=== PATIENT | female | born 1960 | race Caucasian/White ===

== ENCOUNTER 2017-12-12 15:41 | Emergency (ER) | payer BC ==
[~2017-12-12] VITALS: Ht 152.4 cm; Wt 69.2 kg
[~2017-12-12 15:41] MED LIST: ASPI81TA28 PO; CEVI30CA PO; DILT120C68 PO; FURO20TA PO; HYDC25 PO; LEVO150T PO; LEVO175T PO; LISI20TA3 PO; NIFE20CA PO; OMEGCAP2 PO; PRAS1TAB6 PO; VENL75TA4 PO
[2017-12-12 16:05] VITALS: TEMP 37; Ht 152.4 cm; Wt 69.2 kg
[2017-12-12] MEDS ORDERED: MoRPHine SULFATE 2 MG/ML CARP IV STA (16:34)
[2017-12-12] MEDS ORDERED: SODIUM CHLORIDE 0.9% 1000ML 1,000 ML IV STA (16:34)
[2017-12-12] MEDS ORDERED: ONDANSETRON INJ 2 MG/ML 2 ML VIAL IV STA (16:34)
[2017-12-12] MEDS ORDERED: ACETAMINOPHEN IV 100 ML IV STA (16:37)
[2017-12-12] MEDS ORDERED: CIPROFLOXACIN 400MG / 200ML D5W IV STA (16:37)
[2017-12-12 16:44] LABS: BASO % 0.4 %; BASO ABS # 0.02 K/uL (0-0.2); EOS % 2.9 %; EOS ABS # 0.14 K/uL (0-0.5); HEMATOCRIT 43.9 % (37-47); HEMOGLOBIN 15.2 g/dL (12.0-16.0); IG# 0.02 K/uL (0.00-0.02); LYMPH % 24.6 %; MEAN CELL VOLUME 89.6 fL (80-100); MEAN CORPUSCULAR HGB CONC 34.6 g/dl (32-36); MEAN PLATELET VOLUME 10.1 fL (7.4-10.4); MONO % 7.6 %; MONO ABS # 0.37 K/uL (0.11-0.59); NEUT % 64.1 %; NEUT ABS # 3.13 K/uL (1.4-6.5); PLATELET COUNT 226 K/uL (130-400); RED CELL DISTRIBUTION WIDTH CV 14.3 % (11.5-14.5); RED CELL DISTRIBUTION WIDTH SD 46.8 fL (36.4-46.3); WHITE BLOOD COUNT 4.88 K/uL (4.8-10.8)
[2017-12-12 16:56] LABS: ALBUMIN 4.1 gm/dl (3.4-5.0); CALCIUM 9.5 mg/dl (8.5-10.1); CREATININE 1.01 mg/dl (0.60-1.20); POTASSIUM 3.5 mmol/L (3.5-5.1)
[2017-12-12 16:59] LABS: TOTAL PROTEIN 9.4 gm/dl (6.4-8.2)
[2017-12-12] MEDS ORDERED: LISI40TA PO (17:01)
[2017-12-12] MEDS ORDERED: NIFE60TA66 PO (17:01)
[2017-12-12] MEDS ORDERED: SPIR25TA PO (17:01)
--- NOTE | 2017-12-12 17:11 | EMERGENCY ROOM VISIT NOTE ---
History Report prepared by Diane: Mildred Padron Under the Supervision of: Dr. Felipa Gonzalez M.D. First contact with patient: 16:13 Chief Complaint: URINARY SYMPTOMS Stated Complaint: UTI PAIN,DIARRHEA,VOMITING,PAIN Nursing Triage Summary: patient c/o nausea and vomiting x 2 days. patient went to [facility]. flu negative. patient c/o increased frequency and burning during urination, nausea vomiting and diarrhea. History of Present Illness The patient is a 56 year old female who presents to the Emergency Room with complaints of worsening urinary symptoms starting today. The patient states that she was at [facility] yesterday. She states that she was vomiting every two hours and couldn't walk. She reports that her heart was racing. She states that [place] gave her fluids and Zofran. She reports that they did an EKG , chest x-ray, blood work, and a urine test. She reports that they told her that everything was negative. The patient states that she is sure she has a UTI. She complains of nausea, vomiting, abdominal pain, back pain, and diarrhea. She reports that she has had 4 episodes of diarrhea today. Source of History: patient Onset: today Position: other (global) Quality: other (urinary) Timing: worsening Associated Symptoms: + nausea, + vomiting, + abdominal pain, + back pain, + diarrhea Review of Systems See HPI for pertinent positives & negatives. A total of 10 systems reviewed and were otherwise negative. Past Medical & Surgical Medical Problems: (1) Anxiety (2) Chronic abdominal pain (3) Hypertension (4) Hypothyroidism (5) Sjoegren syndrome Surgical Problems: (1) History of cholecystectomy Family History No pertinent family history Social History Smoking Status: Never Smoker Alcohol Use: none Drug Use: none Marital Status: Housing Status: lives with family Occupation Status: employed Current/Historical Medications Scheduled Aspirin (Aspirin Ec), 81 MG PO QAM Ciprofloxacin Hcl (Cipro), 500 MG PO BID Diltiazem Hcl Ext Rel (Tiazac), 120 MG PO QAM Levothyroxine Sodium (Synthroid), 175 MCG PO MON & FRI @0800 Levothyroxine Sodium (Synthroid), 150 MCG PO JARA,,,,SA@0800 Lisinopril (Zestril), 60 MG PO DAILY Nifedipine (Nifedipine Er), 1 TAB PO DAILY Spironolactone (Aldactone), 25 MG PO DAILY Venlafaxine Hcl (Effexor), 75 MG PO BID Scheduled PRN Furosemide (Lasix), 20 MG PO DAILY PRN for swelling Allergies Coded Allergies: Cephalosporins (Verified Allergy, Unknown, 01/18/16) PT HAD ROCEPHIN WITHOUT INCIDENT Meperidine (Verified Allergy, Unknown, 01/18/16) Morphine (Verified Allergy, Unknown, 12/12/17) PT STATES "IT MAKES ME GO OUT AND I CAN'T WAKE UP" Penicillins (Verified Allergy, Unknown, 01/18/16) PT HAD ROCEPHIN WITHOUT INCIDENT Prednisone (Verified Allergy, Unknown, 12/12/17) PT STATES IT CAUSES SEIZURES Sulfa Drugs (Verified Allergy, Unknown, 01/18/16) Physical Exam Vital Signs Date Time Temp Pulse Resp B/P (MAP) Pulse Ox O2 Delivery O2 Flow Rate FiO2 12/12/17 20:00 72 20 166/111 98 12/12/17 18:47 71 92 Room Air 12/12/17 18:15 87 Room Air 12/12/17 18:15 97 Nasal Cannula 2.0 12/12/17 17:46 74 18 156/94 94 Room Air 12/12/17 16:46 83 12/12/17 16:05 37.0 108 18 136/90 99 Room Air Physical Exam Vital signs reviewed. General: Well-appearing, in no significant distress. HEENT: No scleral icterus, PERRLA, neck supple. Atraumatic. Cardiovascular: Regular rate and rhythm, no extra sounds. Pulmonary: Clear to auscultation bilaterally, normal work of breathing. Abdomen: Soft, nondistended, positive bowel sounds. Diffuse mild abdominal tenderness. No rebound. No guarding. Musculoskeletal: Atraumatic, no peripheral edema. Positive CVA tenderness bilaterally. Neurologic: Patient awake alert and oriented x 3 Skin: Warm, dry, no rash Medical Decision & Procedures Laboratory Results 12/12/17 16:20 Red Blood Count 4.90, Mean Corpuscular Volume 89.6, Mean Corpuscular Hemoglobin 31.0, Mean Corpuscular Hemoglobin Concent 34.6, Mean Platelet Volume 10.1, Neutrophils (%) (Auto) 64.1, Lymphocytes (%) (Auto) 24.6, Monocytes (%) (Auto) 7.6, Eosinophils (%) (Auto) 2.9, Basophils (%) (Auto) 0.4, Neutrophils # (Auto) 3.13, Lymphocytes # (Auto) 1.20, Monocytes # (Auto) 0.37, Eosinophils # (Auto) 0.14, Basophils # (Auto) 0.02 12/12/17 16:20 Test 12/12/17 16:05 12/12/17 16:20 Urine Color YELLOW Urine Appearance CLOUDY (CLEAR) Urine pH 7.0 (4.5-7.5) Urine Specific [place] 1.021 (1.000-1.030) Urine Protein 2+ (NEG) Urine Glucose (UA) NEG (NEG) Urine Ketones TRACE (NEG) Urine Occult Blood 1+ (NEG) Urine Nitrite NEG (NEG) Urine Bilirubin NEG (NEG) Urine Urobilinogen NEG (NEG) Urine Leukocyte Esterase LARGE (NEG) Urine WBC (Auto) >30 /hpf (0-5) Urine RBC (Auto) 10-30 /hpf (0-4) Urine Hyaline Casts (Auto) 1-5 /lpf (0-5) Urine Epithelial Cells (Auto) 20-30 /lpf (0-5) Urine Bacteria (Auto) 1+ (NEG) White Blood Count 4.88 K/uL (4.8-10.8) Red Blood Count 4.90 M/uL (4.2-5.4) Hemoglobin 15.2 g/dL (12.0-16.0) Hematocrit 43.9 % (37-47) Mean Corpuscular Volume 89.6 fL (80-100) Mean Corpuscular Hemoglobin 31.0 pg (25-34) Mean Corpuscular Hemoglobin Concent 34.6 g/dl (32-36) Platelet Count 226 K/uL (130-400) Mean Platelet Volume 10.1 fL (7.4-10.4) Neutrophils (%) (Auto) 64.1 % Lymphocytes (%) (Auto) 24.6 % Monocytes (%) (Auto) 7.6 % Eosinophils (%) (Auto) 2.9 % Basophils (%) (Auto) 0.4 % Neutrophils # (Auto) 3.13 K/uL (1.4-6.5) Lymphocytes # (Auto) 1.20 K/uL (1.2-3.4) Monocytes # (Auto) 0.37 K/uL (0.11-0.59) Eosinophils # (Auto) 0.14 K/uL (0-0.5) Basophils # (Auto) 0.02 K/uL (0-0.2) RDW Standard Deviation 46.8 fL (36.4-46.3) RDW Coefficient of Variation 14.3 % (11.5-14.5) Immature Granulocyte % (Auto) 0.4 % Immature Granulocyte # (Auto) 0.02 K/uL (0.00-0.02) Anion Gap 9.0 mmol/L (3-11) Est Creatinine Clear Calc Drug Dose 54.0 ml/min Estimated GFR () 72.1 Estimated GFR (Non- 62.2 BUN/Creatinine Ratio 15.0 (10-20) Calcium Level 9.5 mg/dl (8.5-10.1) Magnesium Level 1.9 mg/dl (1.8-2.4) Total Bilirubin 0.3 mg/dl (0.2-1) Direct Bilirubin 0.1 mg/dl (0-0.2) Aspartate Amino Transf (AST/SGOT) 29 U/L (15-37) Alanine Aminotransferase (ALT/SGPT) 51 U/L (12-78) Alkaline Phosphatase 87 U/L (45-117) Total Protein 9.4 gm/dl (6.4-8.2) Albumin 4.1 gm/dl (3.4-5.0) Lipase 86 U/L (73-393) Date/Time Source Procedure Growth Status 12/12/17 16:05 Urine , Clean Catch Urine Culture - Final Escherichia Coli Complete Laboratory results per my review. Medications Administered Medications (Trade) Dose Ordered Sig/Sadi Route Start Time Stop Time Status Last Admin Dose Admin Sodium Chloride 1,000 ml @ 999 mls/hr Q1H1M STAT IV 12/12/17 16:34 12/12/17 17:34 DC 12/12/17 17:02 999 MLS/HR Ondansetron HCl (Zofran Inj) 4 mg NOW STAT IV 12/12/17 16:34 12/12/17 16:36 DC 12/12/17 17:02 4 MG Acetaminophen 100 ml @ 400 mls/hr NOW STAT IV 12/12/17 16:37 12/12/17 16:51 DC 12/12/17 17:02 400 MLS/HR Ciprofloxacin/ Dextrose (Cipro / D5W) 400 mg NOW STAT IV 12/12/17 16:37 12/12/17 16:38 DC 12/12/17 17:02 400 MG Ciprofloxacin (Cipro Tab) 1,000 mg NOW STAT PO 12/12/17 18:23 12/12/17 18:24 DC 12/12/17 19:02 1,000 MG Ondansetron HCl (ZOFRAN ODT 4MG Home Pack) 1 homepack UD ONCE PO 12/12/17 18:30 12/12/17 18:31 DC 12/12/17 19:02 1 HOMEPACK ED Course 1619: Past medical records reviewed. The patient was evaluated in room A8. A complete history and physical examination was performed. 1634: Ordered Zofran Inj 4 mg IV, NSS 1000 ml @ 999 mls/hr IV. 1637: Ordered Ciprofloxacin/ Dextrose 400 mg IV, Acetaminophen 100 ml @ 400 mls/ hr Protocol IV. 1823: Ordered Cirpo Tab 1000 mg PO. 1826: Upon reevaluation, the patient appeared to have improvement of her symptoms. I discussed findings with her. She verbalized agreement of the treatment plan. The patient was discharged home. 1830: Ordered Ondansetron HCl 1 homepack PO. Medical Decision Differential diagnosis: Etiologies such as gastroenteritis, food borne illness, infections, appendicitis , diverticulitis, inflammatory bowel disease, obstruction, GI bleed, biliary pathology, as well as others were entertained. This patient was evaluated and appeared to be in no significant distress. IV access was obtained and laboratory work was drawn. The patient was hydrated with normal saline solution. Laboratory work is fairly unrevealing. UA was obtained and is positive. The patient has multiple medication allergies. She was placed on Cipro 7 days and Zofran when necessary. Patient will drink plenty of clear fluids and follow-up with her PCP this week. She will return to the ER for worsening of symptoms or any medical concerns. Medication Reconcilliation Current Medication List: was personally reviewed by me Blood Pressure Screening Patient's blood pressure: Elevated blood pressure Blood pressure disposition: Referred to PCP Impression Primary Impression: Urinary tract infection Scribe Attestation The scribe's documentation has been prepared under my direction and personally reviewed by me in its entirety. I confirm that the note above accurately reflects all work, treatment, procedures, and medical decision making performed by me. Departure Information Dispostion Home / Self-Care Prescriptions Ciprofloxacin Hcl (CIPRO) 500 Mg Tab 500 MG PO BID, #14 TAB Prov: Felipa Gonzalez M.D. 12/12/17 Referrals Jb Mcmillan D.O. (PCP) Forms HOME CARE DOCUMENTATION FORM, IMPORTANT VISIT INFORMATION Patient Instructions My [facility] Additional Instructions Diagnosis: UTI, vomiting and diarrhea Zofran 4 mg ODT every 6 hours as needed for nausea. Cipro 500 mg twice daily for 7 days. Drink plenty of clear fluids and maintain a bland diet when tolerated. Advance your diet slowly as tolerated. Follow-up with your physician this week for reevaluation. Return to the ER for worsening of symptoms or any medical concerns.
[2017-12-12 18:15] VITALS: O2SAT 97
[2017-12-12] MEDS ORDERED: CIPR-255 PO (18:22)
[2017-12-12] MEDS ORDERED: CIPROFLOXACIN 500 MG TAB PO STA (18:23)
[2017-12-12] MEDS ORDERED: ONDANSETRON HOME PACK 4MG OD TAB PO ONE (18:30)
[2017-12-12] MEDS ORDERED: EMPTY 8 DRAM VIAL ONE (18:57)
[2017-12-12 20:00] VITALS: BP 166/111; PULSE 72; O2SAT 98
--- NOTE | 2017-12-14 15:05 | Pharmacy Progress Note ---
ED Pharmacist Culture FollowUp Date of Service: Dec 14, 2017. Called patient regarding urine culture, E. coli growing resistant to ciprofloxacin which patient was taking. Prescription for nitrofurantoin 100 mg BID x 10 days called to [facility] at the patient's request. Case discussed with Dr. Anthony, who is the prescribing provider.
== END 2017-12-12 20:18 | disposition home or self-care (01) ==
LOC: C.EDB 15:42 → C.EDA 20:18
DX: N39.0 Urinary tract infection, site not specified (principal); R19.7 Diarrhea, unspecified; F41.9 Anxiety disorder, unspecified; R10.9 Unspecified abdominal pain; G89.29 Other chronic pain; I10 Essential (primary) hypertension; E03.9 Hypothyroidism, unspecified; M35.00 Sjogren syndrome, unspecified; Z90.49 Acquired absence of other specified parts of digestive tract; Z79.82 Long term (current) use of aspirin; Z79.899 Other long term (current) drug therapy

== ENCOUNTER → 2017-12-31 | Outpatient (CLI) | payer BC ==
[~2017-12-31] MED LIST changes: -CEVI30CA PO; +CIPR-255 PO; -HYDC25 PO; -LISI20TA3 PO; +LISI40TA PO; -NIFE20CA PO; +NIFE60TA66 PO; -OMEGCAP2 PO; -PRAS1TAB6 PO; +SPIR25TA PO
== END | disposition home or self-care (01) ==
LOC: C.LAB 13:07
PROVIDERS: ATTEND Internal Medicine Nephrology
DX: N39.0 Urinary tract infection, site not specified (principal)

== ENCOUNTER → 2018-01-31 | Outpatient (CLI) | payer BC ==
[~2018-01-31] MED LIST changes: +GADAVIST IV PRN
--- NOTE | 2018-01-31 11:48 | DIAGNOSTIC IMAGING REPORT ---
Brain MRA HISTORY: H49.02 Third nerve palsy, leftR20.0 Numbness and tingling of left face TECHNIQUE: 3-D [id number] MRA of the brain was performed without contrast. COMPARISON STUDY: Head CT 01/18/2016. Brain MRI 09/12/2015. Brain MRI 03/28/2014. FINDINGS: The distal vertebral arteries and basilar artery are widely patent. Hypoplastic right P1 segment. The right POULTRY HUSBANDMAN is primarily fed through the right posterior communicating artery. This is considered to be a normal variant. The bilateral ACAs, MCAs, and tobacco dipper show no significant stenosis, occlusion, aneurysm. Focal area of susceptibility artifact lateral to the left carotid siphon consistent with the aneurysm coiling seen on the prior studies. There is diminished to no perfusion seen within the proximal carotid siphon and within the left supraclinoid ICA. This is best seen on axial images 128 and 152. The right ICA is widely patent. IMPRESSION: 1. There is diminished to no perfusion seen within the intracranial left ICA as described above. This favors focal areas of occlusion and is new from the prior studies. However, some of this could be related to the susceptibility artifact from the aneurysm coils at this location. 2. Otherwise, the bilateral ACAs, MCAs, and tobacco dipper show no significant stenosis, occlusion, or aneurysm. Electronically signed by: Alfred Christensen M.D. 01/31/2018 11:47 AM Dictated Date/Time: 01/31/2018 11:37 AM
--- NOTE | 2018-01-31 11:52 | DIAGNOSTIC IMAGING REPORT ---
BRAIN COMBO CLINICAL HISTORY: 57 years-old Female presenting with H49.02 Third nerve palsy, leftR20.0 Numbness and tingling of left side of the face, history of aneurysm surgery in 2018, pipeline stent in 2016. TECHNIQUE: Multisequence, multiplanar MR imaging of the brain was performed before and after the administration of intravenous contrast. IV contrast: 09/12/2015. COMPARISON: None. FINDINGS: Proportional ventricular and sulcal prominence, likely age-related parenchymal volume loss. Periventricular and subcortical white matter T2/FLAIR hyperintensity, nonspecific but likely indicative of chronic small vessel ischemic change. 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 No mass effect or midline shift. No restricted diffusion to suggest acute ischemia. No hemorrhage. No extra-axial fluid collection. T2 skull base flow voids preserved. Cluster of coils noted in the region of the cavernous segment of the left internal carotid artery. This likely displaces adjacent structures including the cavernous portion of the left third oculomotor nerve. The appearance is unchanged from prior MR in 2014. The pipeline stent in the intracranial portion of the left internal carotid is better visualized on contemporaneous MRA No abnormal parenchymal enhancement. Bone marrow signal intensity within the calvarium within normal limits. Cystic change noted in the bilateral parotid glands with a focal mass evident in the inferior left parotid gland (series 7 image 12). This is unchanged from prior exam in 2014. IMPRESSION: 1. Stable postprocedural changes of coil embolization in the region of the cavernous segment of the left ICA and left ICA pipeline stent. The stent is better visualized on contemporaneous MRA. The coil ball likely exerts mass effect on the cavernous portion of the left third oculomotor nerve, however, this is unchanged since 2015. 2. No acute intracranial pathology. 3. 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 4. Chronic small vessel ischemic change. 5. Left parotid gland lesion unchanged since 2014 as well as bilateral cystic changes of the parotid glands. Electronically signed by: Balbir Rivera M.D. 01/31/2018 11:51 AM Dictated Date/Time: 01/31/2018 11:41 AM
== END | disposition home or self-care (01) ==
LOC: C.MRI 01-24 06:55
PROVIDERS: ATTEND Physician Assistant
DX: H49.02 Third [oculomotor] nerve palsy, left eye (principal); I67.1 Cerebral aneurysm, nonruptured; I72.9 Aneurysm of unspecified site; R20.0 Anesthesia of skin; R20.2 Paresthesia of skin

== ENCOUNTER 2024-03-21 06:28 | Observation (INO) ==
--- NOTE | 2024-01-12 09:21 | PAT Medication Instructions ---
Medication Instructions Date of Service January 12, 2024 Home Medications aspirin 81 mg tablet,delayed release (Aspir-) 81 mg PO HS nifedipine 60 mg tablet,extended release 60 mg PO QAM ergocalciferol (vitamin D2) 1,250 mcg (50,000 unit) capsule 50,000 unit PO Q7D furosemide 20 mg tablet (Lasix) 20 mg PO DAILY PRN lisinopril 40 mg tablet 40 mg PO BID levothyroxine 112 mcg capsule 112 mcg PO QAM venlafaxine 150 mg capsule,extended release 24 hr 150 mg PO QAM ASK your prescriber and surgeon aspirin 81 mg tablet,delayed release (Aspir-) 81 mg PO HS DO NOT take the morning of surgery ergocalciferol (vitamin D2) 1,250 mcg (50,000 unit) capsule 50,000 unit PO Q7D furosemide 20 mg tablet (Lasix) 20 mg PO DAILY PRN lisinopril 40 mg tablet 40 mg PO BID Take morning of surgery With a small sip of water, OTHERWISE NOTHING TO EAT OR DRINK AFTER MIDNIGHT: nifedipine 60 mg tablet,extended release 60 mg PO QAM levothyroxine 112 mcg capsule 112 mcg PO QAM venlafaxine 150 mg capsule,extended release 24 hr 150 mg PO QAM Take evening before surgery lisinopril 40 mg tablet 40 mg PO BID Other Notes If you have any questions please call us at [phone] or [phone] or [phone] or [phone]
--- NOTE | 2024-01-14 09:27 | Anesthesiology Consultation ---
Date of Service January 14, 2024 Assessment & Plan (1) Encounter for pre-operative examination: - Infectious disease screening: Per assessment on 01/14/24: No known infectious disease contacts or current infectious disease symptoms. No noted recent Covid positive test result. - Outpatient joint assessment: Pt currently scheduled for inpatient pathway. If surgeon requests review for outpatient joint pathway, patient is an acceptable candidate for outpatient joint program from anesthesia standpoint pending surgeon's office assessment that patient is motivated, has good support and completes Same Day Joint Program preop requirements. 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 She has a history of a 3 mm right IZABELLA aneurysm which was stable and overall of 2019 to compare the 2020. 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. The patient had a history of headaches but her headaches have resolved and she is doing quite well neurologically. Recommendations: 1. Follow-up in 1 year. 2. At that time, we will consider when we might want to recheck her MR angiography again." - Hx orthostatic hypotension: Patient states she will be seeing cardiology for new patient appt in near future. Awaiting upcoming cardiology office visit ([facility] cardiology, appt 01/27). Patient otherwise acceptable risk for surgery. Chart Review Chart Review: Patient seen in Pre Admission Testing Teaching & Discussion Pre-Anesthesia Teaching/Discussion Notes: Instructed NPO after midnight before surgery,except medications with 15 cc of water. Medication instructions provided according to the PAT guidelines. History Surgery Operation Date: 02/15/24 12:30 Proposed Procedures p Left Total Knee Arthroplasty - Santy Valle MD Height/Weight Height: 5 ft Weight: 67.7 kg Allergies Allergy/AdvReac Type Severity Reaction Status Date / Time prednisone Allergy Severe Seizure Verified 01/10/24 09:29 Sulfa (Sulfonamide Allergy Severe Throat/lips/face Verified 01/12/24 09:19 Antibiotics) swelling, vomiting meperidine Allergy Intermediate "Hard time Verified 01/12/24 09:19 waking" after surgery Penicillins Allergy Intermediate Itchy, Verified 01/12/24 09:19 hives Cephalosporins Allergy Unknown Unknown Verified 01/10/24 09:29 Medications Home Medications Medication Instructions Recorded Confirmed Last Taken aspirin 81 mg tablet,delayed 81 mg PO HS 11/1301/10/24 10/19/19 release (Aspir-) nifedipine 60 mg tablet,extended 60 mg PO QAM 09/27/18 01/10/24 10/20/19 release ergocalciferol (vitamin D2) 1,250 50,000 unit PO Q7D 03/24/22 01/10/24 Unknown mcg (50,000 unit) capsule furosemide 20 mg tablet (Lasix) 20 mg PO DAILY PRN Fluid Retention 10/02/22 01/10/24 Unknown lisinopril 40 mg tablet 40 mg PO BID 10/02/22 01/10/24 Unknown levothyroxine 112 mcg capsule 112 mcg PO QAM 01/07/24 01/10/24 Unknown venlafaxine 150 mg 150 mg PO QAM 01/10/24 01/10/24 Unknown capsule,extended release 24 hr Past Medical History Medical History Anxiety Brain aneurysm Follows with [facility] neurology Per neuro visit 05/2013: "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 She has a history of a 3 mm right IZABELLA aneurysm which was stable and overall of 2019 to compare the 2020. 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." GERD (gastroesophageal reflux disease) Hypertension Hypothyroidism IgA nephropathy Left knee DJD Lupus Orthostatic hypotension Recent dx, upcoming new patient appt with [facility] Cardiology 01/28/24 Osteoarthritis Raynauds disease Sjoegren syndrome Exercise / Class Metabolic Activity II 4-5 Yardwork/Stairs/Walk up hill (one FS: no CP, no SOB) Past Family History Family History Mother Colorectal cancer Father Liver disease Other No family history of adverse response to anesthesia No significant family history Past Surgical History Surgical History H/O cerebral aneurysm repair 2007 [facility] History of cardiac catheterization 2009- No stents History of carpal tunnel surgery of right wrist History of cholecystectomy History of colonoscopy History of esophagogastroduodenoscopy (EGD) History of laparoscopy History of right inguinal hernia repair History of total abdominal hysterectomy and bilateral salpingo-oophorectomy History of tubal ligation Past Anesthesia History No Hx of Anesthesia Complications and Difficult Airway History of PONV No Hx of PONV and No Hx of Motion Sickness Social History Smoking Status: Never smoker Do You Dip or Chew Tobacco: No Hx Alcohol Use: No Hx Substance Use: No substance use type: does not use Review of Systems Occasional palpitations. Patient denies chest pain, shortness of breath, dyspnea on exertion, fever, chills, cough, wheezing. Physical Exam Vital Signs BP 129/84 P 82 TEMP 98.5 SP02 96%RA RESP 16 Physical Full cervical extension range of motion. Full TMJ range of motion. TMD 3.5 finger breaths Mallampati Score 3 Dentition: upper/lower full dentures Lungs: clear throughout to auscultation Cardiac: regular rate and rhythm, no murmurs noted Spine: normal Carotid arteries: negative bruit Extremities: no LE edema Lab Results Anesthesia Preop Results Results Anesthesia Widget: WBC 5.49 K/ul (4.8-10.8) 01/14/24 Hgb 15.4 g/dl (12.0-16.0) 01/14/24 Hct 44.8 % (37.0-47.0) 01/14/24 Plt 277 K/uL (130-400) 01/14/24 Na 140 mmol/L (136-145) 01/14/24 K 3.6 mmol/L (3.5-5.1) 01/14/24 Cl 105 mmol/L (98-107) 01/14/24 CO2 27 mmol/L (21-32) 01/14/24 BUN 26 mg/dl (6-23) H 01/14/24 Creat 0.82 mg/dl (0.6-1.2) 01/14/24 Glucose Level 80 mg/dl (70-99(Fasting)) 01/14/24 PT 10.6 Seconds (9.0-12.0) 01/14/24 PTT 31 Seconds (21-31) 01/14/24 INR 1.0 (0.9-1.1) 01/14/24 Blood Type O Positive 01/14/24 Antibody Screen NEGATIVE 01/14/24 Testing Electrocardiogram Date: 01/14/24 NSR at 78bpm. Voltage criteria for LVH. Minor NS TWA. Chest X-Ray Date: 01/14/24 Findings: + NAD Other Testing Brain MRI Date: 02/19/22 FINDINGS: There are no foci of restricted diffusion to suggest acute infarct. No acute intracranial hemorrhage, midline shift or mass effect is present. Ventricular system is unremarkable. Basal cisterns are patent. There are no extra axial collections. Flow-voids for the major intracranial vessels are present. There is no intracranial mass or pathologic enhancement. Numerous white matter T2 hyperintense foci are similar to MRI of May 28, 2020. Old lacunar infarcts within left cerebellar hemisphere unchanged. There is no right basal ganglia infarct. This is also unchanged. Susceptibility artifact within the region of the left supraclinoid ICA is from the embolization coils. Calvarial signal is normal. Orbits are unremarkable. There is no evidence for sinusitis. There is no mastoid fluid. Heterogeneity of the bilateral parotid glands is unchanged. IMPRESSION: No acute intracranial findings. No change in appearance of the brain since MRI of May 28, 2020. No change in numerous white matter T2 hyperintense foci. Head MRA Date: 02/19/22 FINDINGS: A 3 mm right supraclinoid ICA aneurysm is unchanged since MRA of May 28, 2020. Diminished flow-related enhancement of the left carotid siphon is similar to prior MRI. This could be due to susceptibility artifact from embolization. The appearance is unchanged. There is persistence of the right posterior cerebral artery. No central vessel occlusion is identified. No additional intracranial aneurysms are identified. The posterior circulation is intact. There is no evidence for dissection within the intracranial vessels. The MRI of the brain will be reported separately. IMPRESSION: No change since MRA of May 28, 2020. 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 Stable findings following coil embolization within the region of the left supraclinoid ICA. Diminished flow related enhancement within the adjacent portion of the left internal carotid artery is unchanged since prior exam. This could be related to susceptibility artifact from the adjacent coils or the left ICA stent. Vessel stenosis could appear similar.
--- NOTE | 2024-03-16 08:09 | History & Physical Report ---
Date of Service March 16, 2024 Assessment & Plan (1) Left knee DJD: 63-year-old female with a 10+ year history of persistent progressive left knee pain discomfort unresponsive conservative treatment. She like to proceed with knee replacement. As she has been seen and medically optimized. Patient also has a history of trigger fingers of the right hand. That she likely is fixed at the same time. This is gone for several months. Not interested in injection treatment. Plan: Orgran taken to the operating room and do a left knee replacement for the risks Mente this procedure planed the patient clued but not limited to DVT PE infection neurological and vascular bleeding palm pain in the manage most this is fairly her symptoms incomplete relief of symptoms excetra. The patient understands and desires to proceed. Informed consent was obtained. Will also proceed with trigger finger release Right long and ring trigger fingers. The risks Mente this procedure EXPLAINED. SHE UNDERSTANDS AND DESIRES TO PROCEED. WILL PLAN ON DVT PROPHYLAXIS INCLUDING THIGH-HIGH TEDS, SCDS, ASPIRIN TWICE A DAY. WILL LIKELY USE TRAMADOL FOR POSTOPERATIVE PAIN CONTROL SHE HAS NOT DONE WELL WITH OXYCODONE. (2) Trigger finger, right ring finger: (3) Trigger finger, right middle finger: History of Present Illness Chief Complaint: . #1 left knee pain 2. Right long and ring finger catching and locking. Primary Care Provider: Myra Lawler MD . Patient is a 63-year-old female who presents now for surgical treatment of several things. 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 She has a 10-year history of left knee pain discomfort is gradually gotten worse over time patient been followed and treated at [facility] orthopedics. She has been through ex tensive conservative care which would become less successful over time. Got global pain in her knee. The more she is up and onto more it hurts. She has difficulty going up and down steps. She now like to proceed with surgical treatment. Of note, this patient's been scheduled for knee surgery in the past but got rescheduled due to some medical issues. She is had her medicines adjusted and now doing better and would like to proceed with knee surgery. She been seen by cardiology and cleared. Over the past several months she developed catching and locking of her right long and ring fingers. Bit worse in the morning. She has been seen in clinic and she is elected proceed with surgical treatment. She is not interested in conservative/injection treatment Allergies Allergy/AdvReac Type Severity Reaction Status Date / Time prednisone Allergy Severe Seizure Verified 03/08/24 08:24 Sulfa (Sulfonamide Allergy Severe Throat/lips/face Verified 03/08/24 08:24 Antibiotics) swelling, vomiting meperidine Allergy Intermediate "Hard time Verified 03/08/24 08:24 waking" after surgery Penicillins Allergy Intermediate Itchy, Verified 03/08/24 08:24 hives Cephalosporins Allergy Unknown Unknown Verified 03/08/24 08:24 Home Medications Medication Instructions Recorded Confirmed Type aspirin 81 mg tablet,delayed 81 mg PO QAM 09/27/18 03/08/24 History release (Aspir-) nifedipine 60 mg tablet,extended 60 mg PO QAM 09/27/18 03/08/24 History release ergocalciferol (vitamin D2) 1,250 50,000 unit PO Q7D 03/24/22 03/08/24 History mcg (50,000 unit) capsule furosemide 20 mg tablet (Lasix) 20 mg PO DAILY PRN Fluid Retention 10/02/22 03/08/24 History lisinopril 40 mg tablet 40 mg PO BID 10/02/22 03/08/24 History levothyroxine 112 mcg capsule 112 mcg PO QAM 01/07/24 03/08/24 History venlafaxine 150 mg 150 mg PO QAM 01/10/24 03/08/24 History capsule,extended release 24 hr metoprolol succinate 25 mg 25 mg PO HS 03/08/24 03/08/24 History tablet,extended release 24 hr Wheeled Walker #1 ea 03/13/24 Rx Past Med/Surg History Medical History IgA nephropathy Osteoarthritis Lupus Raynauds disease GERD (gastroesophageal reflux disease) Brain aneurysm Follows with [facility] neurology Per neuro visit 05/2013: "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 She has a history of a 3 mm right IZABELLA aneurysm which was stable and overall of 2019 to compare the 2020. 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." Orthostatic hypotension Recent dx, upcoming new patient appt with [facility] Cardiology 01/28/24 Left knee DJD Anxiety Hypothyroidism Sjoegren syndrome Hypertension Surgical History History of cardiac catheterization 2010- No stents, [facility] History of laparoscopy History of tubal ligation History of esophagogastroduodenoscopy (EGD) History of colonoscopy History of carpal tunnel surgery of right wrist H/O cerebral aneurysm repair 2007 [facility] + 2016 [facility] History of total abdominal hysterectomy and bilateral salpingo-oophorectomy History of right inguinal hernia repair History of cholecystectomy Family History Mother Colorectal cancer Father Liver disease Other No family history of adverse response to anesthesia No significant family history Social History Smoking Status: Never smoker Second Hand Exposure: No; Do You Dip or Chew Tobacco: No; Tobacco Cessation Education Requested by Patient: No Hx Alcohol Use: No Hx Substance Use: No Preferred Language: Belarusian Communication Ability: Effective 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 Physical Exam . Physical examination reveals a pleasant fairly petite middle-age female but looks in reasonably good health. Examination of the left knee reveals the patient walks with a fairly normal gait. No obvious limp. She got fairly anatomic to slight varus alignment to her knee. She is tender over the medial joint line. Small knee effusion. Range of motion 5-1 25. No instability. No pain with hip motion. Examination of the hand reveals pain and discomfort along the flexor sheath of the right long and ring fingers. She got to trigger the long finger. Little bit more difficult to get a trigger of the ring finger. She is neurologically intact. Does have a scar from previous carpal tunnel release. Neck trachea midline, no thyromegaly Respiratory normal respiratory effort, lungs clear to auscultation Cardiovascular RRR, no murmur, no edema Gastrointestinal (Abdomen) normal bowel sounds, soft, nontender, no hepatosplenomegaly Results & Data Results & Data Laboratory Results . Diagnostic Findings . X-rays of the left knee were reviewed. Shows moderate medial compartment arthritis. Got 50% loss of her medial joint space. Is got osteophytes medially and laterally. PG Care Time/CCT Total # of Minutes Spent Total Time Spent with Patient: Total time spent is greater than 50% in coordination of care (as documented) at patient's floor/unit and/or counseling patient: Coding Level of Care Code None Diagnoses Left knee DJD M17.12 Trigger finger, right ring finger M65.341 Trigger finger, right middle finger M65.331
[~2024-03-21 06:28] MED LIST changes: +ALLERGY Noted to ORDERED Medication SCH; -ASPI81TA28 PO; +BUPIVACAINE 0.5 % 5 MG/1 ML PF 10ML VIAL ONE; -CIPR-255 PO; -DILT120C68 PO; -FURO20TA PO; -GADAVIST IV PRN; -LEVO150T PO; -LEVO175T PO; -LISI40TA PO; -NIFE60TA66 PO; +ROPIVACAINE 0.5% 5 MG/ML 30 ML VIAL ONE; -SPIR25TA PO; -VENL75TA4 PO
--- NOTE | 2024-03-21 06:52 | History & Physical Bridge Note ---
Date of Service March 21, 2024 History & Physical Bridge Note I have examined the patient, reviewed the History & Physical and in the interval since the performance of the History & Physical I have noted the following changes of clinical significance: no changes noted
[2024-03-21] MEDS ORDERED: Nursing to Pharmacy Communication SCH (07:15)
[2024-03-21] MEDS: FAMOTIDINE 20 MG TAB PO SCH (07:30)
[2024-03-21] MEDS: CeleBREX 200 MG CAP PO SCH (07:30)
[2024-03-21] MEDS: METOCLOPRAMIDE HCL 10 MG TABLET PO SCH (07:31)
[2024-03-21] MEDS: ACETAMINOPHEN 500 MG TAB PO SCH ×2 (07:31→14:37)
[2024-03-21] MEDS: Scopolamine 1 MG TDSY TD SCH (07:31)
[2024-03-21] MEDS: LR 500ML BOLUS, THEN 15ML/HR IV SCH (07:31)
[2024-03-21] MEDS: LR 60ML/HR IV SCH (07:31)
[2024-03-21] MEDS: dexAMETHasone**PF** 10 MG/ML VIAL IV SCH (07:31)
[2024-03-21] MEDS ORDERED: MIDAZOLAM HCL 1 MG/ML 2ML VIAL ONE (08:09)
[2024-03-21] MEDS: ceFAZolin 2000MG 2,000 MG/15 ML SYR IV SCH (09:11)
[2024-03-21] MEDS: TRANEXAMIC ACID 1,000 MG **IV Intra-op IV SCH (09:58)
[2024-03-21] MEDS: ROPIV 0.5% 246mg, Ketorolac 30mg, EPINEPHrine 0.5mg in NSS INFIL SCH (09:59)
[2024-03-21] MEDS: ORTHO JOINT ANESTHETIC ONE (10:00)
[2024-03-21] MEDS ORDERED: LIDOCAINE 2% 2 ML VIAL/AMP(20MG/ML) INFIL ONE (10:10)
[2024-03-21] MEDS ORDERED: PROPOFOL IV EMULSION 10 MG/ML 20 ML VIAL IV ONE (10:10)
[2024-03-21] MEDS: LIDOCAINE 1% LOCAL 20 ML VIAL ONE (10:59)
--- NOTE | 2024-03-21 11:33 | Operative Report ---
PG Post Operative Report Pre & Post Diagnosis Operation Date: 03/21/24 08:50 Pre-Op Diagnosis: Left Knee Degenerative Joint Disease, trigger finger right 3rd and 4th finger Post-Op Diagnosis: Left Knee Degenerative Joint Disease, trigger finger right 3rd and 4th finger I identified the patient and participated in the time-out.: Yes Procedure Operation Date: 03/21/24 08:50 Actual Procedures p Left Total Knee Arthroplasty(Left) - Santy Valle MD s Right Third and Fourth Trigger Finger Release(Right) - Santy Valle MD Surgeon Santy Valle MD Assistant Import Manager Pradeep Langston PA-C Estimated Blood Loss 52 Findings Consistent with Post-Op Diagnosis Operative findings in the left knee revealed full-thickness cartilage loss in the medial side of the knee. There is no knee joint eburnation. She had some spotty grade 4 changes laterally. Fairly mild patellofemoral disease. Small to moderate-sized knee joint effusion. Moderate osteopenia. Specimens Left knee sent for pathology Anesthesia Type Spinal MAC Complications none Disposition Accompanied Patient To Recovery: No Indications Patient is a 63-year-old female has had about a 10-year history of left knee pain discomfort is gradually gotten worse over time. She been through extensive conservative treatment which became less successful over time. X-rays revealed moderate knee arthritis. She failed all conservative measures. She elected pro ceed with total knee arthroplasty. The patient is also had a several month history of triggering and catching and discomfort of the right long and ring fingers. She elected proceed with trigger finger release at the time of this knee replacement surgery. Description of Procedure Operative implants consist of: 1 Biomet Vanguard size 57.5 left posterior stabilized femoral component. 2. Biomet size 67 tibial tray. 3. 12 mm post stabilized polyethylene insert. 4. 28 x 8 all poly patella. The patient was taken to the operating, identified, placed on the operating table in supine position. All contact areas were appropriately padded. IV antibiotics tried by anesthesia team. A spinal anesthetic and abductor canal block had been provided in the holding area. A Boyd catheter was placed in sterile fashion. Left thigh drape was then placed in the left lower extremity was then prepped and draped in usual sterile fashion. The left leg was elevated and exsanguinated with use of an Esmarch and tourniquet placed at 300 mmHg. An anterior approach the left knee was then performed to longitudinal incision centered over the patella. Sharp dissection was got through subcutaneous tissue down the extensor mechanism. Medial parapatellar arthrotomy incision was made. Some subperiosteal dissection was carried out medially. The fat pad was resected from Neath patella tendon. Lateral patellofemoral ligament was released. The patella was subluxated laterally and the knee was flexed. The osteophytes taken on distal femur. The ACL and PCL were then released from distal femur and the tibia subluxated anteriorly. The external treatment line jig was then placed the interface the tibia and adjusted 14 mm medially. Proximal tibial cut was made to move out to 3 mm of bone from the medial side. The tibia sized to a size 67. Attention drawn the distal femur. The distal femur was then with a sharp drill. Intramedullary canal was suction. A left 5 degree valgus cutting guide was placed. The distal femoral cutting block was pinned in place. Distal femoral cut was made to take an additional 3 mm of bone off the distal femur. The femur was then sized to a size 57.5. The AP cutting block was pinned parallel to the epicondylar axis which was 4 degrees of external rotation. The anterior cut, anterior chamfer, posterior cut, posterior chamfer cuts were made. The box cutting guide was placed in just slight lateral box cut was made. The knee was flexed. The remnants of the medial and lateral menisci were excised. The osteophytes were taken off the posterior aspect of femur. A trial femoral component was placed. The tibial tray was pinned Lluvia external rotation and the drill and stem punch were used to create defect in proximal tibia for the tibial tray. The knee was then trialed and the 12 mm insert fit most appropriately. Attention drawn the patella. The patella was cleaned of all soft tissues. Patella thickness measured 19 mm in thickness was cut down to 13. Was sized to a size 28 patella. The lug holes were drilled for the 28 patella. The lateral osteophyte was removed. Patella button was placed. Knee was taken through range of motion and the patella tracked nicely with no thumbs test. Attention drawn to place the permanent components. All trial components were removed. Bone plug was placed in the distal femur limit blood loss. A double batch Palacos G cement was mixed. A BiomAdesso Solutionsguard size 57.5 left posterior stabilized femoral component, size 67 tibial tray, a 12 mm post stabilized polyethylene insert, and a 28 x 8 all poly patella then cemented in place. The knee was brought out into full extension till cement hardened. Final cement check was then performed. The pericapsular tissues were injected with 100 cc of orthopedic joint mix. The patient did receive 1 g of tranexamic acid. The tourniquet was then let down for final tourniquet time 51 minutes. Hemostasis assured use electrocautery. The wound was once again irrigated. The extensor Metros then closed with combination 1 PDS suture #1 Vicryl suture in a [id number] fashion. The extensor Meclomen checked found to be intact and subcutaneous tissue then closed with 2 Dexon suture in a buried interrupted fashion skin was closed with skin mirlande. Leg was then cleaned and dried and sterile dressing with Xeroform, 4 fours, sterile cast padding, Gabo bandage were applied. Attention drawn to the right hand. All drapes were taken down. The right forearm tourniquet was placed. The right hand was cleaned with alcohol. 11 cc of 1% lidocaine were then injected at the base of the right long and ring fingers. The right hand was then prepped and draped in usual sterile fashion. The right hand was elevated and exsanguinated with use of an Esmarch and the tourniquet was placed at 250 mmHg. A transverse incision was made at the base of the long and ring fingers the distal palmar crease. Blunt dissection was carried out through subcutaneous tissue taking great care to protect the digital nerves. Attention was first drawn to the long finger. The 1 roberta was identified over the flexor tendon sheath. It was transected the use of scissors both proximally and distally. The finger was taken through an active and active assisted range of motion there is no further catching. Attention drawn the ring finger. Blunt dissection was carried directly down to the flexor tendon sheath of the ring finger. The A1 roberta was identified and released with use of scissors. Finger was taken through an active and active assisted range of motion is no further catching. We then irrigated the wound. The tourniquet was let down for tourniquet time 5 minutes. Hemostasis assured use electrocautery. The wound was once again irrigated and the skin was closed with 4-0 nylon suture in a horizontal mattress fashion. The hand was then cleaned and dried and a sterile dressing composed of Xeroform, 4 x 4's, sterile cast padding, Gabo bandage were applied. Patient then transferred to the recovery room in stable condition. Patient tolerated procedure well and there were no complications. Pradeep Langston, my physician events and promotions assistant, was present for the entire procedure. His assistance was required for proper patient positioning, prepping and draping, surgical exposure, retraction, perform the technical details of the operation, placement of the implants, closure of the incision sites as well as closure of the skin and placement of sterile bandages. I attest to the content of the Intraoperative Record and any orders documented therein. Any exceptions are noted below.
--- NOTE | 2024-03-21 11:40 | Anesthesiology Progress Note ---
Date of Service March 21, 2024 Anesthesia Post Procedure Vital Signs Vital Signs: Temp Pulse Pulse Resp BP Pulse Ox O2 Del Method 03/21/24 11:35 68 17 113/58 L 99 Nasal Cannula 03/21/24 11:25 67 18 106/54 L 92 Room Air 03/21/24 11:15 36.2 C L 70 18 115/56 L 92 Room Air 03/21/24 06:45 36.9 C 61 18 166/81 H 96 Room Air O2 Flow Rate 03/21/24 11:35 2 03/21/24 11:25 03/21/24 11:15 03/21/24 06:45 Notes Mental Status: alert / awake / arousable Patient Amnestic to Procedure: Yes Nausea / Vomiting: adequately controlled Pain: adequately controlled Airway Patency, RR, SpO2: stable & adequate BP & HR: stable & adequate Hydration State: stable & adequate Neuraxial Anesthesia: was administered Anesthetic Complications: no major complications apparent
--- NOTE | 2024-03-21 12:03 | XRay Report ---
LEFT KNEE 2 VIEWS History: Left total knee arthroplasty. Degenerative arthritis. Postop. FINDINGS: The patient is status post a left total knee arthroplasty. The hardware is intact. No fract ure or dislocation. Skin mirlande are in place. IMPRESSION: Left total knee arthroplasty. No evidence for hardware complication. ACT 112: Negative or not required by law. Electronically signed by: Alfred Christensen M.D. 03/21/2024 12:02 PM
[2024-03-21] MEDS ORDERED: ONDANSETRON INJ 2 MG/ML 2 ML VIAL IV PRN (13:59)
[2024-03-21] MEDS ORDERED: NALOXONE HCL 0.4 MG/1 ML VIAL/CARP IV PRN (13:59)
[2024-03-21] MEDS ORDERED: FUROSEMIDE 20 MG TAB PO PRN (13:59)
[2024-03-21] MEDS ORDERED: ALUMINUM/MAGNESIUM SUSP 30 ML UDC PO PRN (13:59)
[2024-03-21] MEDS ORDERED: bisacodyL 10 MG SUPP PR PRN (13:59)
[2024-03-21] MEDS ORDERED: MAGNESIUM HYDROXIDE SUSP 30 ML UDC PO PRN (13:59)
[2024-03-21] MEDS ORDERED: METOCLOPRAMIDE HCL INJ 5 MG/ML 2 ML VIAL IV PRN (13:59)
[2024-03-21] MEDS: SODIUM CHLORIDE 0.9% 1,000 ML IV SCH (14:13)
[2024-03-21] MEDS: KETOROLAC 30 MG/ML VIAL IV SCH (14:36)
[2024-03-21] MEDS: Scopolamine CHECK PATCH PLACEMENT SCH (16:00)
[2024-03-21] MEDS: ASCORBIC ACID 500 MG TAB PO SCH (16:01)
[2024-03-21] MEDS: ceFAZolin 1000MG 1,000 MG/7.5 ML SYR IV SCH (16:13)
[2024-03-21] MEDS: TRANEXAMIC ACID / 0.7% NACL 1,000 MG/100 ML BAG IV SCH (16:14)
[2024-03-21] MEDS: ASPIRIN 81 MG ECTAB PO SCH (20:09)
[2024-03-21] MEDS: DOCUSATE SODIUM 100 MG CAP PO SCH (20:10)
[2024-03-21] MEDS: lisinopril 40 MG TAB PO SCH (20:10)
[2024-03-21] MEDS: METOPROLOL SUCC 25MG EXT REL TAB PO SCH (20:10)
[2024-03-21] MEDS: SENNA 8.6 MG TAB PO SCH (20:10)
[2024-03-21] MEDS ORDERED: SENNA 8.6 MG TAB PO SCH (21:00)
[2024-03-21] MEDS: traMADol HCL 50 MG TABLET PO PRN (22:38)
[2024-03-21] MEDS: HYDROmorphone INJ 0.5 MG/0.5 ML SYR IV PRN (23:31)
[2024-03-22] MEDS: LEVOTHYROXINE SODIUM 112 MCG TABLET PO SCH (05:01)
[2024-03-22] MEDS: dexAMETHasone 10 MG in SYRINGE 0 ML IV SCH (07:12)
[2024-03-22] MEDS: NIFEdipine EXTENDED REL 30 MG TABCR PO SCH (07:13)
[2024-03-22] MEDS: VENLAFAXINE HCL XR 150 MG CAPXR PO SCH (07:13)
[2024-03-22] MEDS: MULTIVITAMIN TAB PO SCH (07:13)
[2024-03-22] MEDS: ERGOCALCIFEROL 1250 MCG (50,000 UNITS) CAP PO SCH (07:13)
[2024-03-22 07:31] LABS: Hematocrit (blood only) 36.3 % (37.0-47.0); Hemoglobin 12.5 g/dl (12.0-16.0); Mean Corpuscular Hemoglobin 29.3 pg (25.0-34.0); Mean Corpuscular Hgb Conc 34.4 g/dL (32.0-36.0); Mean Corpuscular Volume 85.2 fL (80.0-100.0); Mean Platelet Volume 10.2 fL (9.4-12.4); Platelet Count 222 K/uL (130-400); RDW Coefficient of Variation 13.3 % (11.5-14.5); RDW Standard Deviation 41.5 fL (36.4-46.3); Red Blood Count 4.26 M/uL (4.20-5.40)
--- NOTE | 2024-03-22 07:48 | Surgery Progress Note ---
Date of Service March 22, 2024 Assessment & Plan (1) Status post left knee replacement: Plan: 63-year-old female postop day 1 from a left knee replacement and some right hand trigger finger releases. She is doing well. Pain is controlled. She is neurologically intact. Plan: 1. DVT prophylaxis including thigh-high teds, SCDs, aspirin twice a day. 2. PT/OT. Weight-bear as tolerated. Left total knee protocol. 3. Pain control doing okay with current pain regimen. 4. Disposition plan to discharge home with some home health later today if she does okay in that physical therapy. Leave the dressing on her right hand. All instructed on dressing changes starting tomorrow for the left knee. (2) Trigger finger, right ring finger: (3) Trigger finger, right middle finger: Admission and Anticipated Discharge Date Admission Date: March 21, 2024 Subjective 63-year-old female postop day 1 from left knee replacement and right hand tri gger finger releases. She is doing pretty well. No real pain at all in her hand. The left knee just feels stiff. No chest pain or shortness of breath. Had a reasonable night. Physical Exam Physical Exam: Physical examination reveals a pleasant middle-aged female. Lying bed looks pretty comfortable. Examination left leg reveals dressing be clean dry and intact. She can dorsiflex and plantarflex her foot appropriately. She can do a straight leg raise but takes some effort. Physical examination of the right hand reveals the dressing be clean dry and intact. She can flex extend her fingers appropriately. She is neurologically intact. Respiratory: normal respiratory effort, lungs clear to auscultation Cardiovascular: RRR, no murmur, no edema Gastrointestinal (Abdomen): normal bowel sounds, soft, nontender, no hepatosplenomegaly Results & Data Vital Signs (Past 12 Hours) Vital Signs Temp Pulse Pulse Resp BP Pulse Ox O2 Del Method 03/22/24 07:41 36.8 C 52 L 16 169/94 H 95 Room Air 03/22/24 03:13 36.7 C 62 16 152/79 H 97 Room Air 03/21/24 23:11 36.7 C 65 16 137/76 96 Room Air 03/21/24 22:23 Room Air Laboratory Results Hemoglobin is 12.5 hematocrit 36.3. Electrolytes are pending PG Care Time/CCT Total # of Minutes Spent Total Time Spent with Patient: Total time spent is greater than 50% in coordination of care (as documented) at patient's floor/unit and/or counseling patient: Coding Level of Care Code 06107 Post Operative Follow-Up Diagnoses Status post left knee replacement Z96.652 Trigger finger, right ring finger M65.341 Trigger finger, right middle finger M65.331
[2024-03-22 08:04] LABS: Calcium 8.8 mg/dl (8.6-10.3); Creatinine Clr Calc Pharmacy 80.4 ml/min; Est GFR (African American) 111.8 ml/min; Est GFR (Non-African American) 96.5 ml/min; Potassium 3.6 mmol/L (3.5-5.1)
--- NOTE | 2024-03-27 07:54 | Discharge Summary ---
Date of Service March 27, 2024 Discharge Data Procedures Performed Operation Date: 03/21/24 08:50 Actual Procedures p Left Total Knee Arthroplasty(Left) - Santy Valle MD s Right Third and Fourth Trigger Finger Release(Right) - Santy Valle MD Hospital Course (1) Status post left knee replacement: This is a 63 year old patient admitted on 03/21/24 and underwent total knee arthroplasty and trigger finger releases. She tolerated the procedure well and there were no complications. Transferred to the PACU post op and later to the orthopedic floor for further care. She was given ancef for antibiotic prophylaxis. She was also given WINSTON stockings, SCDs, and aspirin for DVT prophylaxis. Hemoglobin, hematocrit, and vital signs were monitored during her hospital stay and remained stable. Did not require any blood transfusions. There were no complications during her hospital stay. By post op day #1 the patient was tolerating a regular diet, pain was reasonably controlled with oral pain medicine, and she was participating in physical therapy. On post op day #1 the patient was discharged home and set up with home health care. She was given printed discharge instructions including pre scriptions for extra strength tylenol, aspirin, cefadroxil, ketorolac, tramadol, zofran, and senokot. Continue physical therapy, weight bearing as tolerated. Continue WINSTON stockings. Leave the hand dressing intact until follow up. Follow up approximately 2 weeks post op or sooner if there are problems or concerns. Coding Level of Care Code None Diagnoses Status post left knee replacement Z96.652
== END 2024-03-22 12:41 | disposition home health service (06) ==
LOC: 3E 06:28 → ASU 06:28